=== PATIENT | female | born 1990 | race Two or more races ===

== ENCOUNTER 2017-01-13 20:30 | Emergency (ER) | payer SELFPAY ==
[~2017-01-13] VITALS: Ht 162.6 cm; Wt 68.0 kg
[2017-01-13 20:43] VITALS: BP 140/94
[2017-01-13] MEDS ORDERED: diphenhydrAMINE HCL 50 MG CAPSULE ONE (21:17)
[2017-01-13] MEDS ORDERED: predniSONE 20 MG TABLET ONE (21:17)
[2017-01-13] MEDS ORDERED: predniSONE 10 MG TABLET PO ONE (21:30)
[2017-01-13] MEDS ORDERED: diphenhydrAMINE HCL 50 MG CAPSULE PO ONE (21:30)
== END 2017-01-13 21:56 | disposition home or self-care (01) ==
LOC: ER 20:32
DX: T78.49XA Other allergy, initial encounter (principal); Z88.2 Allergy status to sulfonamides; X58.XXXA Exposure to other specified factors, initial encounter
CPT/HCPCS: 99283; A4606; J7512; Q0163; Z7610

== ENCOUNTER 2017-01-17 13:14 | Emergency (ER) | payer OTHER ==
[~2017-01-17] VITALS: Ht 162.6 cm; Wt 77.1 kg
[2017-01-17 13:23] VITALS: BP 112/81
[2017-01-17] MEDS ORDERED: ACETAMINOPHEN ES 500 MG TABLET PO ONE (14:30)
== END 2017-01-17 14:54 | disposition home or self-care (01) ==
LOC: ER 13:15
DX: L50.9 Urticaria, unspecified (principal); Z88.2 Allergy status to sulfonamides
CPT/HCPCS: 99281; A4606; Z7610; Z7502